=== PATIENT | female | born 1955 | race American Indian/Alaskan Native ===

== ENCOUNTER 2017-09-12 07:20 | Day surgery (SDC) | payer MEDICARE, BC ==
[2017-08-31 11:56] VITALS: BMI 44.9
[2017-09-12] MEDS ORDERED: Sodium Chloride 0.9% 1,000 ML IV SCH (08:45)
[2017-09-12] MEDS ORDERED: Propofol 10 mg/ml Inj (20 ML) ONE (08:48)
[2017-09-12] MEDS ORDERED: ePHEDrine 50 mg/ml Inj ONE (09:10)
[2017-09-12 10:13] VITALS: O2SAT 100
[2017-09-12 10:36] VITALS: BP 134/71; PULSE 53; RESP 18; TEMP 97.6
== END 2017-09-12 11:02 | disposition home or self-care (01) ==
LOC: ENDO 07:20
PROVIDERS: ATTEND Specialist
DX: Z12.11 Encounter for screening for malignant neoplasm of colon (principal); K62.1 Rectal polyp; K57.30 Diverticulosis of large intestine without perforation or abscess without bleeding; K64.8 Other hemorrhoids; E11.9 Type 2 diabetes mellitus without complications; I10 Essential (primary) hypertension; I25.10 Atherosclerotic heart disease of native coronary artery without angina pectoris; E78.5 Hyperlipidemia, unspecified
CPT/HCPCS: 45385; 88305; J2001; J2704; J7040 ×2